=== PATIENT | male | born 1990 | race Caucasian/White ===

== ENCOUNTER → 2016-03-16 | Outpatient (CLI) | payer BC ==
--- NOTE | 2016-03-17 08:57 | REP ---
Left wrist series: Four views. History: Snuffbox tenderness. Hyperextension injury. Findings: Four views of the left wrist demonstrate normal bones, joints and soft tissues. No evidence of fracture or subluxation. Impression: Negative left wrist views. Signed by Vito Peters MD 03/17/2016 09:05 A
== END ==
LOC: M WUC 15:53
PROVIDERS: ATTEND Physician Assistant
DX: M25.532 Pain in left wrist (principal)

== ENCOUNTER 2016-05-09 08:04 | Emergency (ER) | payer OTHER, BC ==
[~2016-05-09] VITALS: Ht 188 cm; Wt 99.8 kg
[2016-05-09] MEDS ORDERED: ALEV220C2 PO (08:21)
[2016-05-09] MEDS ORDERED: GABA-283 PO (08:21)
[2016-05-09] MEDS ORDERED: KETOROLAC 30 MG/ML VIAL (J1885) IM ONE (08:30)
[2016-05-09] MEDS ORDERED: KETOROLAC 30 MG/ML VIAL (J1885) IV ONE (08:30)
[2016-05-09] MEDS ORDERED: MORPHINE 4 MG/ML 1ML SYRINGE IV ONE (10:15)
[2016-05-09] MEDS ORDERED: HYDROmorphone HCL 1 MG/ML SYRINGE (J1170) IV ONE (12:30)
--- NOTE | 2016-05-09 12:50 | REP ---
MRI LUMBAR SPINE WITHOUT AND WITH CONTRAST: 05/09/2016 CLINICAL HISTORY: Low back pain. Prior history of back surgery in [place]. The patient cannot recall location on prior MRI would not be available on the basis of this urgent/emergent request. TECHNIQUE: Sagittal T1, T2 and STIR images with axial T1 and T2 sequences followed by infusion of 20 mL of ProHance with a sagittal fat suppressed T1 and axial standard T1 sequence then provided. FINDINGS: The normal lumbar lordosis is slightly reduced. The disc space height and water signal are normal from T12-L1 through L4-5 vertebral body heights and marrow signal are normal throughout except for some minor discogenic endplate changes anteriorly at L5, S1. The L5, S1 disc space has loss of height and water signal. The conus appears to terminates at the at T12-L1 level. At the T12-L1, L1-2, L2-3 and L3-4 disc levels, there is no disc bulge or herniation and no spinal or foraminal stenosis. At the L4-5 disc level, minimal broad-based disc bulge flattening ventral thecal sac. This abuts the L5 nerve roots in the central canal but does not displace them. The cross-sectional area of the canal was ample. The foramina are marginally adequate without definite nerve root compression for the L5 roots. At L5-S1, there is a left paracentral disc bulge with disc protrusion laterally into the foramen. However, there is partial left hemilaminectomy seen at this level. There is enhancing granulation tissue around the S1 root in the canal and along the left lateral and anterior margin of the thecal sac. Some of this extends into the neural foramen. The S1 nerve root is displaced posteriorly as seen on T2 and the enhanced images for that left side. The L5 nerve root in the canal also shows some enhancing granulation tissue around its proximal course. IMPRESSION: 1. Left paracentral disc bulge with protrusion at L5-S1. Enhancing granulation tissue surrounds the S1 nerve root in the canal on the left side which is displaced posteriorly and also the left anterolateral margin of the thecal sac, lateral thecal sac and proximal course of the L5 root in the canal as a postoperative change. No prior studies are available to define change. There is a prior apparent left hemilaminectomy at L5. 2. Minimal disc bulge at the L4-5 flattening ventral thecal sac. 3. The L3-4 levels and above are intact. Signed by Yossi Kramer MD 05/09/2016 04:14 P
[2016-05-09 12:58] VITALS: BP 131/76
[2016-05-09] MEDS ORDERED: OXYC1TAB23 PO (13:11)
[2016-05-09] MEDS ORDERED: NAPR500T PO (13:11)
[2016-05-09] MEDS ORDERED: NEUR800T PO (13:11)
[2016-05-09] MEDS ORDERED: VALA1TAB PO (13:11)
--- NOTE | 2016-05-15 14:39 | ED PDOC ---
Post-Departure Follow-Up dr hardy and [facility] faxed formal report of mri ls spine for fu Nasra Cheema MD May 15, 2016 14:39
== END 2016-05-09 13:24 | disposition home or self-care (01) ==
LOC: M ED 09:25
DX: G89.29 Other chronic pain (principal); M54.5 Low back pain; B00.9 Herpesviral infection, unspecified
CPT/HCPCS: 72158; 96372; 96374; 96375; 99282; A9576; J1170; J1885

== ENCOUNTER 2016-05-12 16:52 | Emergency (ER) | payer OTHER ==
[~2016-05-12] VITALS: Ht 188 cm; Wt 99.8 kg
[~2016-05-12 16:52] MED LIST: ALEV220C2 PO; GABA-283 PO; NAPR500T PO; NEUR800T PO; OXYC1TAB23 PO; VALA1TAB PO
[2016-05-12] MEDS ORDERED: ROBA750T4 PO (19:14)
[2016-05-12] MEDS ORDERED: MEDR4PAK PO (19:14)
[2016-05-12] MEDS ORDERED: TRAM50TA2 PO (19:14)
[2016-05-12 19:17] VITALS: BP 149/73
[2016-05-12] MEDS ORDERED: traMADol 50 MG TAB PO ONE ×2 (19:30→19:45)
== END 2016-05-12 20:04 | disposition home or self-care (01) ==
LOC: M ED 18:15
DX: M99.73 Connective tissue and disc stenosis of intervertebral foramina of lumbar region (principal)

== ENCOUNTER 2016-06-12 12:12 | Emergency (ER) | payer OTHER ==
[~2016-06-12] VITALS: Ht 188 cm; Wt 99.8 kg
[~2016-06-12 12:12] MED LIST changes: +MEDR4PAK PO; +ROBA750T4 PO; +TRAM50TA2 PO
[2016-06-12] MEDS ORDERED: KETOROLAC 30 MG/ML VIAL (J1885) IV ONE (12:45)
[2016-06-12] MEDS ORDERED: diazePAM 5 MG TAB PO ONE (12:45)
[2016-06-12] MEDS ORDERED: MORPHINE 4 MG/ML 1ML SYRINGE IV ONE ×2 (12:45→14:45)
[2016-06-12] MEDS ORDERED: ROBA500T PO (13:43)
[2016-06-12] MEDS ORDERED: INDO25CA PO (13:43)
[2016-06-12] MEDS ORDERED: PERC5TAB6 PO (13:43)
[2016-06-12] MEDS ORDERED: PERCOCET 5MG/325MG TAB PO ONE (13:45)
[2016-06-12 15:15] VITALS: BP 141/77
== END 2016-06-12 15:16 | disposition home or self-care (01) ==
LOC: M ED 12:30
DX: M51.35 Other intervertebral disc degeneration, thoracolumbar region (principal); S39.012A Strain of muscle, fascia and tendon of lower back, initial encounter; M54.32 Sciatica, left side; X58.XXXA Exposure to other specified factors, initial encounter; Y92.89 Other specified places as the place of occurrence of the external cause; Y93.89 Activity, other specified; Y99.9 Unspecified external cause status
CPT/HCPCS: 96374; 96375; 96376; 99283; J1885; J3360

== ENCOUNTER 2016-06-18 09:29 | Emergency (ER) | payer OTHER, BC ==
[~2016-06-18] VITALS: Ht 188 cm; Wt 99.8 kg
[~2016-06-18 09:29] MED LIST changes: +INDO25CA PO; +PERC5TAB6 PO; +ROBA500T PO
[2016-06-18] MEDS ORDERED: GABA-283 PO (09:47)
[2016-06-18] MEDS ORDERED: HYDROmorphone HCL 1 MG/ML SYRINGE (J1170) IM ONE (11:15)
[2016-06-18] MEDS ORDERED: PERC5TAB6 PO (13:03)
[2016-06-18 13:20] VITALS: BP 117/67
== END 2016-06-18 13:33 | disposition home or self-care (01) ==
LOC: M ED 10:41
DX: M51.27 Other intervertebral disc displacement, lumbosacral region (principal); M54.41 Lumbago with sciatica, right side; M54.42 Lumbago with sciatica, left side; Z79.899 Other long term (current) drug therapy
CPT/HCPCS: 96372; 99282; J1170